=== PATIENT | female | born 1995 | race African-American/Black ===

== ENCOUNTER 2017-03-11 15:04 | Emergency (ER) | payer MEDICAID ==
[~2017-03-11] VITALS: Ht 149.9 cm; Wt 45.4 kg
[2017-03-11 16:00] VITALS: BP 110/70
[2017-03-11 16:19] LABS: APPEARANCE,URINE CLOUDY; KETONES,URINE 3+ (NEGATIVE); LEUKOCYTE ESTERASE ,URINE 2+ (NEGATIVE); NITRITE,URINE NEGATIVE (NEGATIVE); PH,URINE 6 (4.5-8.0); PROTEIN,URINE 2+ (NEGATIVE); UROBILINOGEN,URINE 8 MG/DL (0.0-1.0)
[2017-03-11 16:31] LABS: BACTERIA,URINE FEW /HPF; ICTOTEST POSITIVE; RBC,URINE TNTC /HPF (0 - 2); SQUAMOUS EPITHELIAL CELL,UR FEW /LPF (NONE/OCC); WBC,URINE 0-2 /HPF (0 - 2)
[2017-03-11 17:02] VITALS: BP 106/69
[2017-03-11] MEDS ORDERED: IBUPROFEN600 MG ORAL (17:07)
[2017-03-11 17:15] VITALS: BP 106/69
--- NOTE | 2017-03-12 12:38 | Diagnostic Imaging Report ---
Indication: Pain right ankle Comparison: None Findings: 3 views of the right ankle obtained. No acute fracture, malalignment, periostitis, or osteochondral defects are identified. Soft tissues are unremarkable. Impression: Negative examination
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
== END 2017-03-11 17:15 | disposition home or self-care (01) ==
LOC: EMR 15:40
DX: S93.401A Sprain of unspecified ligament of right ankle, initial encounter (principal); T14.8XXA Other injury of unspecified body region, initial encounter; X58.XXXA Exposure to other specified factors, initial encounter; Y93.9 Activity, unspecified; Y92.9 Unspecified place or not applicable
CPT/HCPCS: 29515; 80307; 81003; 81025; 99284